=== PATIENT | male | born 1965 | race Caucasian/White ===

== ENCOUNTER 2022-02-12 12:15 | Inpatient (IN) | payer BC ==
[~2022-02-12] VITALS: Ht 180.3 cm; Wt 78.5 kg
[2022-02-12 12:41] VITALS: BP_SYST 110
--- NOTE | 2022-02-12 12:48 | NUR ---
Patient to ER bed 7 to gown for evaluation. Side rails up. Report given to Jarrett MONTANEZ.
--- NOTE | 2022-02-12 12:55 | NUR ---
SING AT BEDSIDE FOR ASSESS. PT VSS. SEVERE ABD PAIN 10/10 LOWER ABD. AWAITING ADDITIONAL ORDERS. WILL CONT TO MONITOR PT. SPOUSE AT BEDSIDE.
[2022-02-12 13:25] LABS: BASOPHILS % (AUTO) 0.3 % (0.0-2.0); HEMATOCRIT 32.1 % (36-54); HEMOGLOBIN 11.2 g/dL (14.0-18.0); LYMPHOCYTES # (AUTO) 1.1 K/uL (1.0-5.5); LYMPHOCYTES % (AUTO) 9.8 % (20.5-51.5); MEAN CORPUSCULAR HEMOGLOBIN 30 pg (27-31); MEAN CORPUSCULAR HGB CONC 35 % (32-36); MEAN CORPUSCULAR VOLUME 85 fL (79.0-98.0); MONOCYTES # (AUTO) 0.7 K/uL (0.0-1.0); MONOCYTES % (AUTO) 6.9 % (1.7-9.3); NEUTROPHILS # (AUTO) 8.9 K/uL (1.8-7.7); PLATELET COUNT (AUTO) 121 K/uL (130-430); RED BLOOD CELL COUNT(AUTO) 3.79 MIL/uL (4.2-6.2); RED CELL DISTRIBUTION WIDTH 13.3 % (9.0-15.0); WHITE BLOOD COUNT (AUTO) 10.8 K/uL (4.8-10.8)
[2022-02-12 13:32] LABS: ANION GAP 10 (5-15); CALCIUM 8.9 mg/dL (8.4-11.0); CHLORIDE 101 mmol/L (98-107); CREATININE 5.16 mg/dL (0.55-1.30); GLUCOSE 278 mg/dL (70-99); POTASSIUM 4.1 mmol/L (3.5-5.1); SODIUM SERUM 139 mmol/L (136-145); UREA NITROGEN, BLOOD 69 mg/dL (8-21)
[2022-02-12 13:34] LABS: GFR AFRICAN AMERICAN 15 mL/min (>90)
[2022-02-12 13:41] LABS: ALANINE AMINOTRANSFERASE 30 U/L (12-78); ALBUMIN 2.9 g/dL (3.4-4.8); ASPARTATE AMINOTRANSFERASE 15 U/L (10-37); LIPASE 72 U/L (73-393); TOTAL BILIRUBIN 0.9 mg/dL (0.0-1.0)
[2022-02-12] MEDS ORDERED: NS 500 ML IV ONE (15:00)
[2022-02-12] MEDS: D5/0.45 NS 1,000 ML IV SCH (16:11)
--- NOTE | 2022-02-12 16:23 | NUR ---
Admit bed requested Patient will be admitted to care of . Admitted to MED SURG unit. Diagnosis POSSIBLE APPENDICITIS, RENAL FAILURE Inpatient (Yes or No) YES Observation (Yes or No) Orientation concerns or request close to nursing station (Yes or No) Covid Status On vent or bipap Isolation requirements Needs a sitter From Home (Yes or if No enter name of facility) Requires Dialysis (Yes or No) Med Rec Completed (Yes of No) Addendum: 02/12/22 at 1626 by [email or web address] Admit bed requested Patient will be admitted to care of . Admitted to unit. Diagnosis Inpatient (Yes or No) Observation (Yes or No) Orientation concerns or request close to nursing station (Yes or No) Covid Status On vent or bipap Isolation requirements Needs a sitter From Home (Yes or if No enter name of facility) Requires Dialysis (Yes or No) Med Rec Completed (Yes of No)
[2022-02-12] MEDS ORDERED: PIPERACILLIN/TAZO 3.375/DEX-IS 50 ML IV ONE (16:30)
[2022-02-12] MEDS ORDERED: MORPHINE 4 MG INJ. 4 MG/ML VIAL IVP ONE (16:30)
--- NOTE | 2022-02-12 16:59 | NUR ---
Pt c/o pain in abdomine pain scale10/10. TARIK Babin gave Morphine as prescribed.
[2022-02-12 18:23] LABS: BILIRUBIN,URINE NEGATIVE (NEGATIVE); BLOOD, URINE 2+ (NEGATIVE); CLARITY/URINE SL CLOUDY (CLEAR); COLOR,URINE YELLOW (YELLOW); GLUCOSE,URINE 2+ (NEGATIVE); KETONES,URINE NEGATIVE (NEGATIVE); LEUKOCYTE ESTERASE ,URINE NEGATIVE (NEGATIVE); NITRITE, URINE NEGATIVE (NEGATIVE); PROTEIN URINE 3+ (NEGATIVE); UROBILINOGEN,URINE 0.2 (0.2-1.0)
--- NOTE | 2022-02-12 18:30 | NUR ---
SBAR TO [facility] VIA TELEPHONE FOR ROOM 120A, MED SURG. VSS. NAD NOTED. ALL QUESTIONS ANSWERED. PT ABLE TO WALK WITH WALKER, TAKEN IN W/C TO ROOM. END OF CARE.
--- NOTE | 2022-02-12 18:57 | NUR ---
ADMISSION: The patient, CORINNE RICHMOND, 56 y/o, M admitted by ZENAIDA DAMON MD, was given written information regarding hospital policies, unit procedures and contact persons. dx of abdominal pain r/t appendicitis. Valuables were checked and bedside.
[2022-02-12 18:58] VITALS: BP_SYST 131
[2022-02-12 19:15] LABS: BACTERIA,URINE FEW /HPF (None Seen); WBC,URINE 0-3 /HPF (0-3)
[2022-02-12 19:16] LABS: COARSE GRANULAR CASTS,URINE 0-10 /LPF (None Seen); MUCUS,URINE None Seen /LPF (None Seen); URINE AMORPHOUS URATE 2+ /HPF (None Seen); YEAST,URINE None Seen /HPF (None Seen)
--- NOTE | 2022-02-12 19:16 | NUR ---
consult dr. segal ( christian education director) [phone]. s/w Laura answering services. dx of renal failure and possible appendicitis.
--- NOTE | 2022-02-12 19:18 | NUR ---
consult samara painting (surgery) [phone] s/w ernst answering service dx of possible appendicitias, renal failure.
[2022-02-12 20:00] VITALS: BP_SYST 135
[2022-02-12] MEDS ORDERED: MORPHINE 2 MG/ML INJ. SYRINGE IVP PRN (23:45)
[2022-02-12] MEDS: MORPHINE 2 MG/ML INJ. SYRINGE IVP PRN (23:54)
[2022-02-13 00:04] VITALS: BP_SYST 135
[2022-02-13] MEDS: D5/0.45 NS 1,000 ML IV SCH (02:52)
--- NOTE | 2022-02-13 05:34 | NUR ---
CONSULTATION PAGED/CALLED Reason for Consultation: POSS. APPENDICITIS,RENAL FAILURE Person Who was Notified:TONY Consulting Physician: DAMARIS GRANDE Bulk Picker Specialty: Ordering Physician: MARISOL
[2022-02-13 06:59] LABS: BASOPHILS % (AUTO) 0.3 % (0.0-2.0); EOSINOPHILS % (AUTO) 0.1 % (0.0-4.0); HEMOGLOBIN 9.4 g/dL (14.0-18.0); LYMPHOCYTES # (AUTO) 0.7 K/uL (1.0-5.5); LYMPHOCYTES % (AUTO) 8.2 % (20.5-51.5); MEAN CORPUSCULAR HEMOGLOBIN 30 pg (27-31); MEAN CORPUSCULAR HGB CONC 35 % (32-36); MEAN CORPUSCULAR VOLUME 85 fL (79.0-98.0); MONOCYTES # (AUTO) 0.4 K/uL (0.0-1.0); MONOCYTES % (AUTO) 5.4 % (1.7-9.3); NEUTROPHILS # (AUTO) 6.9 K/uL (1.8-7.7); PLATELET COUNT (AUTO) 98 K/uL (130-430); RED BLOOD CELL COUNT(AUTO) 3.19 MIL/uL (4.2-6.2); RED CELL DISTRIBUTION WIDTH 13.3 % (9.0-15.0)
[2022-02-13] MEDS: MORPHINE 2 MG/ML INJ. SYRINGE IVP PRN (07:10)
[2022-02-13 07:15] LABS: POTASSIUM 3.8 mmol/L (3.5-5.1)
[2022-02-13 07:33] LABS: ALBUMIN 2.4 g/dL (3.4-4.8); CALCIUM 8.3 mg/dL (8.4-11.0); CREATININE 5.43 mg/dL (0.55-1.30); TOTAL BILIRUBIN 0.6 mg/dL (0.0-1.0)
--- NOTE | 2022-02-13 08:00 | NUR ---
RECEIVED IN BED ASSESSMENT COMPLETED PLAN OF CARE REVIEWED CALL LIGHT IN REACH PT MADE AWARE OF CONTINUITY OF NPO STATUS NO DISTRESS NOTED WILL CONITNUE TO MONITOR AND ASSESS
[2022-02-13 11:22] VITALS: BP_SYST 110
--- NOTE | 2022-02-13 12:19 | NUR ---
HD IN PLACE BY STEVE MONTANEZ HEPARIN 5000U X 2 TAKEN FROM PYXI AND GIVEN TO HD RN AT THIS TIME WILL CONTINUE TO MONITOR AND ASSESS
[2022-02-13] MEDS ORDERED: HEPARIN SODIUM,PORCINE 5,000 UNITS/ML VIAL ONE (12:21)
[2022-02-13] MEDS: metroNIDAZOLE 250 mg/NS 50 ML IV SCH ×2 (14:00→22:34)
[2022-02-13 15:46] VITALS: BP_SYST 139
--- NOTE | 2022-02-13 16:03 | NUR ---
NO DISTRESS NOTED AT THIS TIME WILL CONTINUE TO MONITOR AND ASSESS
--- NOTE | 2022-02-13 16:51 | NUR ---
Logo Admission Assessment - Care Management Last Saved By: Nena Jain Last Saved On: 02/13/2022 4:51 PM (PT) Created By: Nena Jain Created On: 02/13/2022 4:50 PM (PT) Patient Information Patient Name: CORINNE RICHMOND [address]: [address] [place] [address] SSN: : 1965 (age 56 years) Work Phone: [phone] Gender: Male Alternative Phone: Marital Status: Single Race: WHITE- Race 2: Ethnicity: or or [place] Origin Ethnicity 2: Patient's Information Who was Interviewed? Answers: Patient What language does the patient speak? Answers: [place] Admitting Facility Answers: *[facility] [[id number]] Admitting Diagnosis lower quadrant pain Advanced Care Planning (check all that apply) Answers: Patient does NOT have advanced Care Planning. Additional Patient Notes covid vaccine: no History and Prior Level of Function DME--PRIOR to Admission: Answers: Walker (document patient usage or frequency of use. Exp; uses walker at all times, uses walker when leaving home) Cognitive--PRIOR to Admission: Answers: Alert & Orientated Home Setting--PRIOR to Admission: Answers: Private Home Notes: H lives w/ Was patient receiving Home Health Services prior to Admission? Answers: No Potential Barriers to Discharge Anticipated Discharge Disposition Answers: Home Does the patient have any potential barriers to DC? 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 [Production(ro--[id number])]
[2022-02-13 19:00] VITALS: BP_SYST 159
--- NOTE | 2022-02-13 19:00 | NUR ---
RECEIVED PT RESTING IN BED .ALERT ORIENTED X4.HE HAS IVF IN PROGRESS HELPED TO THE BATHROOM.MEDICATED FOR PAIN NEEDED
[2022-02-13] MEDS ORDERED: ACETAMINOPHEN 325 MG TABLET ONE (22:34)
[2022-02-14] MEDS: MORPHINE 2 MG/ML INJ. SYRINGE IVP PRN ×3 (00:43→22:47)
[2022-02-14 01:01] VITALS: BP_SYST 158
[2022-02-14] MEDS ORDERED: ACETAMINOPHEN 325 MG TABLET ONE (01:05)
--- NOTE | 2022-02-14 06:00 | NUR ---
NO BM BUT PT PASSES GAS DUE RX GIVEN. PTS VITALS OBTAINED
[2022-02-14] MEDS: metroNIDAZOLE 250 mg/NS 50 ML IV SCH ×3 (06:04→22:33)
--- NOTE | 2022-02-14 10:00 | NUR ---
ASSESSMENT COMPLETED PT ENDORSES HE IS FEELING BETTER PLAN OF CARE REVIEWED WILL CONTINUE TO MONITOR AND ASSESS
[2022-02-14 10:34] LABS: BASOPHILS % (AUTO) 0.3 % (0.0-2.0); EOSINOPHILS % (AUTO) 0.3 % (0.0-4.0); HEMATOCRIT 29.4 % (36-54); HEMOGLOBIN 10.4 g/dL (14.0-18.0); LYMPHOCYTES # (AUTO) 0.4 K/uL (1.0-5.5); LYMPHOCYTES % (AUTO) 5.7 % (20.5-51.5); MEAN CORPUSCULAR HEMOGLOBIN 30 pg (27-31); MEAN CORPUSCULAR HGB CONC 35 % (32-36); MEAN CORPUSCULAR VOLUME 83 fL (79.0-98.0); MONOCYTES # (AUTO) 0.4 K/uL (0.0-1.0); MONOCYTES % (AUTO) 5.4 % (1.7-9.3); NEUTROPHILS # (AUTO) 6.4 K/uL (1.8-7.7); NEUTROPHILS % (AUTO) 88.3 % (40.0-70.0); PLATELET COUNT (AUTO) 99 K/uL (130-430); RED BLOOD CELL COUNT(AUTO) 3.53 MIL/uL (4.2-6.2); RED CELL DISTRIBUTION WIDTH 12.9 % (9.0-15.0); WHITE BLOOD COUNT (AUTO) 7.3 K/uL (4.8-10.8)
[2022-02-14 11:10] LABS: ALBUMIN 2.3 g/dL (3.4-4.8); CALCIUM 8.3 mg/dL (8.4-11.0); CREATININE 5.17 mg/dL (0.55-1.30); PHOSPHORUS 3.7 mg/dL (2.7-4.5); POTASSIUM 3.9 mmol/L (3.5-5.1); TOTAL BILIRUBIN 0.8 mg/dL (0.0-1.0)
[2022-02-14 11:23] VITALS: BP_SYST 156
[2022-02-14 11:31] LABS: C-REACTIVE PROTEIN QUANT 28.6 mg/dL (0-0.5)
[2022-02-14 12:34] LABS: ERYTHROCYTE SEDIMENTATION RATE 91 MM/HR (0-15)
[2022-02-14 15:41] VITALS: BP_SYST 187
[2022-02-14 16:45] VITALS: BP_SYST 154
--- NOTE | 2022-02-14 16:45 | NUR ---
BP 187/86 PT COMPLAINED OF PAIN MEDICATED WITH MORPHINE 2MG IV REASSESSED AND PAIN 0/10 AND BP 154/77 ALL NEEDS ANTICIPATED AND MET
[2022-02-14 19:00] VITALS: BP_SYST 139
--- NOTE | 2022-02-14 19:30 | NUR ---
received patient lying in bed alert and oriented x 4 he use the bathroom states he passed a lot of gas .Educated on current symptoms and expectation vitals done and updated
--- NOTE | 2022-02-15 | NUR ---
vitals done and updated and are within normal range. has been getting pains around the abdomen, he is on morphine 2mg Q4hr/prn.
[2022-02-15 00:55] VITALS: BP_SYST 154
[2022-02-15] MEDS: MORPHINE 2 MG/ML INJ. SYRINGE IVP PRN (04:46)
--- NOTE | 2022-02-15 05:00 | NUR ---
offered some ice water then slept after pain medication
[2022-02-15] MEDS: metroNIDAZOLE 250 mg/NS 50 ML IV SCH (06:14)
[2022-02-15 08:00] VITALS: BP_SYST 146
[2022-02-15] MEDS ORDERED: HEPARIN SODIUM,PORCINE 5,000 UNITS/ML VIAL IVP ONE ×2 (10:15)
[2022-02-15] MEDS ORDERED: METR-154 PO (11:09)
[2022-02-15] MEDS ORDERED: LEVO500T90 PO (11:09)
[2022-02-15 11:30] VITALS: BP_SYST 144
--- NOTE | 2022-02-15 12:00 | NUR ---
Hemodialysis completed 2 liters removed, VSS. Pt denies pain or discomfort. Obtained order to d/c pt home. Reviewed d/c instructions with pt and pt verbalized understanding. at the bedside. All belongings sent with pt and . Prescriptions sent to [facility] and they would be going straight to pickup medication. Escorted out via wheelchair. Pt tolerated well. No distress noted. D/c 'd iv site.
[2022-02-15 12:07] VITALS: BP_SYST 140
== END 2022-02-15 12:40 | disposition home health service (06) | DRG 391 ==
LOC: SED 12:15 → SMU 15:48
PROVIDERS: ADMIT Preventive Medicine Preventive Medicine/Occupational Environmental Medicine; ATTEND Preventive Medicine Preventive Medicine/Occupational Environmental Medicine
PROC: 5A1D70Z Performance of Urinary Filtration, Intermittent, Less than 6 Hours Per Day (ICD-10-PCS; principal; 2022-02-12)
PROC: 5A1D70Z Performance of Urinary Filtration, Intermittent, Less than 6 Hours Per Day (ICD-10-PCS; 2022-02-15)
DX: K52.9 Noninfective gastroenteritis and colitis, unspecified (principal); N18.6 End stage renal disease; I12.0 Hypertensive chronic kidney disease with stage 5 chronic kidney disease or end stage renal disease; E88.09 Other disorders of plasma-protein metabolism, not elsewhere classified; I25.10 Atherosclerotic heart disease of native coronary artery without angina pectoris; Z20.822 Contact with and (suspected) exposure to COVID-19; D63.1 Anemia in chronic kidney disease; E11.21 Type 2 diabetes mellitus with diabetic nephropathy; Z99.2 Dependence on renal dialysis
CPT/HCPCS: 36415; 71045; 76376; 80053; 81000; 82962; 83605; 83690; 83735; 83880; 84100; 84484; 85025; 85651-TC; 86140; 87081; 90935; 90937; 93005; 96374; 96375; 99285; J1644; J1956; J2270; J2543; J3490

== ENCOUNTER 2022-03-20 07:29 | Day surgery (SDC) | payer BC ==
[~2022-03-20] VITALS: Ht 180.3 cm; Wt 81.6 kg
[~2022-03-20 07:29] MED LIST: LEVO-62 PO; METR-154 PO
[2022-03-20] MEDS ORDERED: fentaNYL CITRATE/PF 100 MCG/2 ML AMP ONE (07:36)
[2022-03-20] MEDS ORDERED: MIDAZOLAM HCL 5 MG/5 ML VIAL ONE (07:37)
[2022-03-20] MEDS ORDERED: EPINEPHrine JECT 0.1 MG/ML SYR ONE (10:20)
[2022-03-20 13:47] VITALS: BP_SYST 200
== END 2022-03-20 11:20 | disposition home or self-care (01) ==
LOC: SDS 07:29 → SMU 07:30 → EDUNIT# 09:30 → SDS 11:20
PROVIDERS: ATTEND Internal Medicine
DX: Z12.11 Encounter for screening for malignant neoplasm of colon (principal); D12.5 Benign neoplasm of sigmoid colon; K62.1 Rectal polyp; K57.30 Diverticulosis of large intestine without perforation or abscess without bleeding; K64.8 Other hemorrhoids; I13.2 Hypertensive heart and chronic kidney disease with heart failure and with stage 5 chronic kidney disease, or end stage renal disease; E11.22 Type 2 diabetes mellitus with diabetic chronic kidney disease; I50.9 Heart failure, unspecified; N18.9 Chronic kidney disease, unspecified; Z20.822 Contact with and (suspected) exposure to COVID-19; Z86.73 Personal history of transient ischemic attack (TIA), and cerebral infarction without residual deficits; Z87.891 Personal history of nicotine dependence; Z79.82 Long term (current) use of aspirin; Z79.899 Other long term (current) drug therapy; Z99.2 Dependence on renal dialysis
CPT/HCPCS: 36415 ×2; 45381; 45385; 87426; 82962; 88305; 99152; 99153; U0003; G0378; J0171; J2250; J3010

== ENCOUNTER 2022-07-15 10:13 | Outpatient (CLI) | payer BC | END 2022-07-15 19:44 | disposition home or self-care (01) | LOC: SNM 10:13 | PROVIDERS: ATTEND Urology Pediatric Urology | DX: C61 Malignant neoplasm of prostate (principal) | CPT/HCPCS: 78306; A9503 ==

== ENCOUNTER 2023-09-15 06:33 | Day surgery (SDC) | payer BC ==
[~2023-09-15] VITALS: Ht 180.3 cm; Wt 86.2 kg
[2023-09-15 07:19] VITALS: O2SAT 99
[2023-09-15] MEDS ORDERED: SIMETHICONE 40 MG/0.6 ML ML ONE (07:38)
[2023-09-15] MEDS ORDERED: MEPERIDINE 100 MG INJ. 100 MG/ML VIAL ONE (07:39)
[2023-09-15] MEDS ORDERED: MIDAZOLAM HCL 5 MG/5 ML VIAL ONE (07:39)
[2023-09-15] MEDS ORDERED: fentaNYL CITRATE/PF 100 MCG/2 ML AMP ONE (09:03)
[2023-09-15 16:13] VITALS: BP_SYST 100; PULSE 65; RESP 15
== END 2023-09-15 10:28 | disposition home or self-care (01) ==
LOC: SDS 06:33 → SMU 06:34 → SDS 10:28
PROVIDERS: ATTEND Internal Medicine
DX: Z09 Encounter for follow-up examination after completed treatment for conditions other than malignant neoplasm (principal); D12.2 Benign neoplasm of ascending colon; K57.30 Diverticulosis of large intestine without perforation or abscess without bleeding; K64.8 Other hemorrhoids; I13.0 Hypertensive heart and chronic kidney disease with heart failure and stage 1 through stage 4 chronic kidney disease, or unspecified chronic kidney disease; E11.22 Type 2 diabetes mellitus with diabetic chronic kidney disease; N18.6 End stage renal disease; I50.22 Chronic systolic (congestive) heart failure; I25.2 Old myocardial infarction; Z79.899 Other long term (current) drug therapy; Z87.891 Personal history of nicotine dependence; Z99.2 Dependence on renal dialysis
CPT/HCPCS: 45385; 82948; 88305; 99152; G0378; J2250; J3010; J2175